=== PATIENT | male | born 2000 | race Caucasian/White ===

== ENCOUNTER 2023-05-02 18:00 | Outpatient (CLI) | payer OTHER | END 2023-05-02 18:01 | disposition home or self-care (01) | LOC: SLEEPLAB 18:00 | PROVIDERS: ATTEND Family Medicine | DX: G47.33 Obstructive sleep apnea (adult) (pediatric) (principal); R53.83 Other fatigue; F32.A Depression, unspecified; G47.10 Hypersomnia, unspecified | CPT/HCPCS: 95800 ==